=== PATIENT | female | born 1990 | race Caucasian/White ===

== ENCOUNTER 2020-05-04 20:29 | Inpatient (IN) | payer MEDICAID ==
[~2020-05-04] VITALS: Ht 162.6 cm; Wt 62.6 kg
[2020-05-04] MEDS ORDERED: SODIUM CHLORIDE 0.9% 1,000 ML IV ONE (20:45)
[2020-05-04] MEDS ORDERED: MORPHINE SULFATE 4 MG/ML CPJ (NOT FOR IM USE) IV ONE ×2 (21:00→22:30)
[2020-05-04 21:45] LABS: BASOPHILS % 0.8 % (0.0-2.0); HEMATOCRIT. 42.9 % (36.0-48.0); HEMOGLOBIN. 14.8 g/dL (12.0-16.0); LYMPHOCYTES % 21.7 % (20.0-50.0); MEAN CORPUSCULAR HEMOGLOBIN 29.5 pg (28.0-32.0); MEAN CORPUSCULAR VOLUME 85.6 fL (81.0-99.0); MEAN PLATELET VOLUME 8.2 fl (7.4-10.4); MONOCYTES % 5.8 % (2.0-8.0); NEUTROPHILS % 70.7 % (40.0-76.0); PLATELET 301 x1000/uL (130-400); RED BLOOD CELL COUNT 5.01 mill/uL (4.2-5.4); RED CELL DISTRIBUTION WIDTH 13.3 % (11.6-14.6)
[2020-05-04 21:51] LABS: CHLORIDE 105 mEq/L (98-107)
[2020-05-04 21:58] LABS: PROTHROMBIN TIME 10.2 sec (9.6-11.0)
[2020-05-04 22:01] LABS: B-HCG QUANTITATIVE < 1 mIU/mL (<3)
[2020-05-04] MEDS ORDERED: SODIUM CHLORIDE 0.9% 1000ML BAG (SEPSIS BOLUS) IV ONE (22:15)
[2020-05-04] MEDS ORDERED: CEFTRIAXONE 1 G PREMIX 50 ML IV NR (22:15)
[2020-05-04] MEDS ORDERED: IOHEXOL-300 100 ML BOTTLE ONE (22:21)
[2020-05-04 22:38] LABS: CLARITY URINE CLEAR (CLEAR); COLOR URINE YELLOW (YELLOW); KETONES URINE NEGATIVE (NEGATIVE); LEUKOCYTE ESTERASE URINE TRACE (NEGATIVE); NITRITE URINE NEGATIVE (NEGATIVE); OCCULT BLOOD URINE 3+ (NEGATIVE); PROTEIN URINE NEGATIVE (NEGATIVE); SPECIFIC GRAVITY URINE 1.018 (1.005-1.030)
[2020-05-05] MEDS ORDERED: CLINDAMYCIN 600MG PREMIX 50 ML IV SCH ×3 (00:15→09:00)
[2020-05-05] MEDS ORDERED: MORPHINE SULFATE 4 MG/ML CPJ (NOT FOR IM USE) IV ONE (00:15)
[2020-05-05] MEDS ORDERED: CLINDAMYCIN 600 MG in DEXTROSE 5% WATER 50 ML IV ONE (00:15)
[2020-05-05] MEDS ORDERED: CLINDAMYCIN 600MG PREMIX 50 ML IV ONE (00:15)
[2020-05-05] MEDS ORDERED: IOHEXOL-300 100 ML BOTTLE ONE (00:26)
[2020-05-05] MEDS ORDERED: ONDANSETRON HCL 4MG/2ML INJ IV ONE (01:00)
[2020-05-05 02:50] VITALS: BP 96/63
[2020-05-05] MEDS ORDERED: MORPHINE SULFATE 2 MG/ML CPJ (NOT FOR IM USE) IV PRN (04:00)
[2020-05-05] MEDS ORDERED: ONDANSETRON HCL 4MG/2ML INJ IV PRN (04:00)
[2020-05-05] MEDS: SODIUM CHLORIDE 0.9% 1,000 ML IV SCH ×2 (04:30→14:25)
[2020-05-05] MEDS ORDERED: GENTAMICIN 100MG PREMIX 100 ML IV SCH (05:00)
[2020-05-05] MEDS: GENTAMICIN 100MG PREMIX 50 ML IV SCH ×3 (05:37→21:20)
[2020-05-05] MEDS: OMEPRAZOLE 20MG CAPSULE EXTENDED RELEASE PO SCH (06:14)
[2020-05-05 07:32] LABS: BASOPHILS % 0.5 % (0.0-2.0); HEMATOCRIT. 37.4 % (36.0-48.0); LYMPHOCYTES % 10.4 % (20.0-50.0); MEAN CORPUSCULAR HEMOGLOBIN 29.5 pg (28.0-32.0); MEAN CORPUSCULAR VOLUME 85.2 fL (81.0-99.0); MEAN PLATELET VOLUME 7.7 fl (7.4-10.4); MONOCYTES % 3.9 % (2.0-8.0); NEUTROPHILS % 85.2 % (40.0-76.0); PLATELET 278 x1000/uL (130-400); RED BLOOD CELL COUNT 4.39 mill/uL (4.2-5.4); RED CELL DISTRIBUTION WIDTH 13.2 % (11.6-14.6)
[2020-05-05 08:00] VITALS: BP 92/56
[2020-05-05 08:00] LABS: CHLORIDE 107 mEq/L (98-107)
[2020-05-05] MEDS: CLINDAMYCIN 900 MG PREMIX 50 ML IV SCH ×2 (09:10→17:10)
[2020-05-05 11:45] VITALS: BP 90/55
[2020-05-05 16:00] VITALS: BP 98/60
[2020-05-05 20:00] VITALS: BP 100/64
[2020-05-05] MEDS ORDERED: HYDROCODONE/ACETAMINOPHEN 5/325MG TABLET PO PRN (20:15)
[2020-05-06] VITALS: BP 88/50
[2020-05-06] MEDS: CLINDAMYCIN 900 MG PREMIX 50 ML IV SCH ×2 (03:10→09:37)
[2020-05-06 04:00] VITALS: BP 94/56
[2020-05-06] MEDS: GENTAMICIN 100MG PREMIX 50 ML IV SCH ×2 (05:25→14:13)
[2020-05-06] MEDS: OMEPRAZOLE 20MG CAPSULE EXTENDED RELEASE PO SCH (06:17)
[2020-05-06 07:14] LABS: BASOPHILS % 0.7 % (0.0-2.0); EOSINOPHILS % 1.7 % (0.0-5.0); HEMATOCRIT. 36.1 % (36.0-48.0); HEMOGLOBIN. 12.5 g/dL (12.0-16.0); LYMPHOCYTES % 40.3 % (20.0-50.0); MEAN CORPUSCULAR HEMOGLOBIN 29.8 pg (28.0-32.0); MEAN PLATELET VOLUME 8.2 fl (7.4-10.4); MONOCYTES % 6.7 % (2.0-8.0); NEUTROPHILS % 50.6 % (40.0-76.0); PLATELET 265 x1000/uL (130-400); RED CELL DISTRIBUTION WIDTH 13.4 % (11.6-14.6)
[2020-05-06 08:00] VITALS: BP 99/56
[2020-05-06 08:58] LABS: CHLORIDE 109 mEq/L (98-107)
[2020-05-06 09:09] LABS: GENTAMICIN TROUGH 1.6 ug/mL (<2.0)
[2020-05-06] MEDS: SODIUM CHLORIDE 0.9% 1,000 ML IV SCH ×2 (09:41)
[2020-05-06 11:45] VITALS: BP 93/51
[2020-05-06 16:00] VITALS: BP 116/66
[2020-05-06 18:00] VITALS: BP 116/58
[2020-05-07] MEDS ORDERED: FAMOTIDINE 20MG TABLET PO SCH (09:00)
== END 2020-05-06 18:13 | disposition home or self-care (01) | DRG 720 ==
LOC: ER 20:29 → 8WST 05-05 00:52 → EDBEDREQ 05-05 01:02 → EDBEDREQSVC 05-05 01:02 → EDBEDREQTM 05-05 01:02 → EDBEDREQDT 05-05 01:02 → ENRESERV 05-05 01:44 → 8WST 05-05 03:21
PROVIDERS: ADMIT Internal Medicine; ATTEND Internal Medicine
DX: A41.9 Sepsis, unspecified organism (principal); N71.9 Inflammatory disease of uterus, unspecified; N39.0 Urinary tract infection, site not specified
CPT/HCPCS: 36415; 71045; 74177; 76830; 76856; 80048; 80053; 80170; 81003; 83605; 84145; 84484; 84702; 85025; 93005; 99291; J0696; J1580; J2270; J2405; J3490; J7030; J7060; Q9967